=== PATIENT | male | born 1970 | race Caucasian/White ===

== ENCOUNTER 2023-12-05 16:30 | Inpatient (IN) | payer BC ==
[2023-12-05 17:01] VITALS: BMI 31.6
[2023-12-05] MEDS: Sodium Chloride 0.9% 1,000 ML IV SCH (17:59)
[2023-12-05] MEDS: Nicotine 14 MG PATCH TD SCH (18:08)
[2023-12-05] MEDS: Ondansetron PF 4 MG/2 ML Vial IVP PRN (18:08)
[2023-12-05] MEDS: fentaNYL 50 mcg/mL 1 mL Vial SLOW IVP PRN (19:23)
[2023-12-05] MEDS: Famotidine/PF 20 mg/2ml Vial SLOW IVP SCH (21:09)
[2023-12-05] MEDS: Ketorolac Tromethamine 30 MG (1 mL) VIAL IVP SCH (23:05)
[2023-12-06 05:00] LABS: #Eosinphils 0.2 10x3/uL (0.0-0.5); #Monocytes 0.8 10x3/uL (0.0-1.1); #Neutrophils 7.5 10x3/uL (1.5-8.4); %Basophils 0.1 % (0.0-2.0); %Eosinophils 1.8 % (0.0-6.0); %Lymphocytes 13.1 % (18.0-47.0); %Monocytes 8.2 % (0.0-10.0); %Neutrophils 76.4 % (40.0-75.0); Hematocrit 42.7 % (38.8-50.0); Hemoglobin 14.6 g/dL (13.5-17.5); Mean Corpuscular HGB CONC 34.2 g/dL (32.0-36.0); Mean Corpuscular Hemoglobin 30.7 pg (27.0-33.0); Mean Corpuscular Volume 89.9 fl (81.2-95.1); Platelet Count 258 10x3/uL (150-450); RBC Distribution Width 13.5 % (11.5-14.5); Red Blood Cell (RBC) Count 4.75 10x6/uL (4.32-5.72); White Blood Cell (WBC) Count 9.8 10x3/uL (3.5-10.5)
[2023-12-06 05:15] LABS: Anion Gap 11 mmol/L (10-20); BUN (Urea Nitrogen) 14 mg/dL (8.4-25.7); Calc. Creatinine Clearance 162 mL/min (70-130); Calcium 8.9 mg/dL (7.8-10.44); Carbon Dioxide 23 mmol/L (22-29); Chloride 107 mmol/L (98-107); Estimated GFR 103; Glucose 104 mg/dL (70-105); Potassium 4.1 mmol/L (3.5-5.1); Sodium 137 mmol/L (136-145)
[2023-12-06] MEDS ORDERED: UPADACITINIB 15 MG PO SCH (09:00)
[2023-12-06] MEDS: Lisinopril 10 MG TAB PO SCH (10:10)
[2023-12-06] MEDS: Atorvastatin Calcium 40 MG TAB PO SCH (10:10)
[2023-12-06 12:57] VITALS: BP 136/77; TEMP 97.6
== END 2023-12-06 17:19 | disposition home or self-care (01) | DRG 390 ==
LOC: CSHTELE 16:30
PROVIDERS: ADMIT Family Medicine; ATTEND Family Medicine
PROC: 0D9670Z Drainage of Stomach with Drainage Device, Via Natural or Artificial Opening (ICD-10-PCS; principal; 2023-12-05)
DX: K56.609 Unspecified intestinal obstruction, unspecified as to partial versus complete obstruction (principal); M06.9 Rheumatoid arthritis, unspecified; I10 Essential (primary) hypertension; E78.5 Hyperlipidemia, unspecified; F17.210 Nicotine dependence, cigarettes, uncomplicated; Z98.890 Other specified postprocedural states; Z88.6 Allergy status to analgesic agent; Z79.899 Other long term (current) drug therapy; Z71.6 Tobacco abuse counseling
CPT/HCPCS: 36415; 74018; 80048; 85025; 94760; J1885; J2405; J3010; J7050; S0028